=== PATIENT | female | born 1945 | race Caucasian/White ===

== ENCOUNTER 2023-12-24 13:15 | Emergency (ER) | payer MEDICARE ==
[2023-12-24 14:07] LABS: Actual Bicarbonate (HCO3v) 25.6 mEq/L (22-28); Analyzer IN Cardio CS ER; Base Excess 2.1 mEq/L (-2 - +2); Calcium, Ionized (venous) 1.19 mmol/L (1.16-1.32); Chloride (VBG) 104 mmol/L (98-106); Hematocrit-VBG 42 % (36.0-47.0); Hemoglobin (Hb) 14.4 g/dL (11.7-16.1); Potassium (VBG) 3.47 mmol/L (3.70-5.30); Puncture Site Other Site; Sodium 142 mmol/L (133-146); pH (venous) 7.464 (7.32-7.43)
[2023-12-24 14:15] LABS: #Basophils 0.07 10x3/uL (0.0-0.2); #Eosinophils 0.32 10x3/uL (0.0-0.5); #Monocytes 0.83 10x3/uL (0.0-1.1); #Neutrophils 4.53 10x3/uL (1.5-8.4); %Basophils 0.8 % (0.0-2.0); %Eosinophils 3.7 % (0.0-6.0); %Lymphocytes 33.5 % (18.0-47.0); %Monocytes 9.6 % (0.0-10.0); %Neutrophils 52.1 % (40.0-75.0); Hematocrit 39.8 % (34.9-44.5); Hemoglobin 13.3 g/dL (12.0-15.5); Mean Corpuscular HGB CONC 33.4 g/dL (32.0-36.0); Mean Corpuscular Hemoglobin 31.4 pg (27.0-33.0); Mean Corpuscular Volume 93.9 fL (81.6-98.3); Mean Platelet Volume 9.8 fL (7.4-10.4); Platelet Count 323 10x3/uL (150-450); RBC Distribution Width 13.1 % (11.5-14.5); Red Blood Cell (RBC) Count 4.24 10x6/uL (3.90-5.03); White Blood Cell (WBC) Count 8.7 10x3/uL (3.5-10.5)
[2023-12-24 14:18] LABS: Bilirubin Neg (Negative); Blood, Urine Negative (Negative); Clarity Clear (Clear); Glucose, Urine (Dipstick) Normal (Negative); Ketone, Urine Negative (Negative); Leukocyte Negative (Negative); Nitrite Negative (Negative); Protein, Urine (Dipstick) Negative (Neg-Trace); Urobilinogen Normal mg/dL (Less than 2)
[2023-12-24 14:24] LABS: ALT (SGPT) 25 U/L (8-55); AST (SGOT) 28 U/L (5-34); Albumin 4.1 g/dL (3.4-4.8); Alkaline Phosphatase 54 U/L (40-110); Anion Gap 16 mmol/L (10-20); BUN (Urea Nitrogen) 10 mg/dL (9.8-20.1); Bilirubin, Total 0.6 mg/dL (0.2-1.2); Calc. Creatinine Clearance 0 mL/min (70-130); Calcium 10.2 mg/dL (7.8-10.44); Carbon Dioxide 23 mmol/L (23-31); Chloride 106 mmol/L (98-107); Estimated GFR 75; Globulin 3.1 g/dL (2.4-3.5); Glucose 104 mg/dL (83-110); Magnesium 1.9 mg/dL (1.6-2.6); Potassium 3.7 mmol/L (3.5-5.1); Protein, Total 7.2 g/dL (5.8-8.1); Sodium 141 mmol/L (136-145)
[2023-12-24 14:27] LABS: Troponin I Less than 0.010 ng/mL (< 0.028)
[2023-12-24 15:05] LABS: Bacteria/HPF None Seen HPF (None Seen); CAUTI Indications for Culture Pelvic or flank pain; RBC/HPF None Seen HPF (0-3); Squamous Epithelial 0-3 HPF (0-3); WBC/HPF None Seen HPF (0-3)
[2023-12-24 15:06] LABS: Urine Culture Reflex No No
== END 2023-12-24 15:29 | disposition home or self-care (01) ==
LOC: CSHERS 13:15
DX: R06.02 Shortness of breath (principal); J44.89 Other specified chronic obstructive pulmonary disease; I10 Essential (primary) hypertension; I25.2 Old myocardial infarction; Z86.16 Personal history of COVID-19
CPT/HCPCS: 71045; 80053; 81001; 82805; 83735; 83880; 84484; 85025; 93005